=== PATIENT | female | born 1970 | race Caucasian/White ===

== ENCOUNTER 2023-08-22 19:34 | Emergency (ER) | payer BC, SELFPAY ==
[2023-08-22 20:00] LABS: % Basophils 0.7 % (0-2); % Eosinophils 1.7 % (0-6); % Immature Granulocytes 0.2 % (0-0.5); % Lymphocytes 36.1 % (20.5-51.1); % Monocytes 6.9 % (1.7-9.3); % Neutrophils 54.4 % (42.2-75.2); Absolute Eosinophils 0.1 10^3/uL (0-0.7); Absolute Lymphocytes 2.1 10^3/uL (1.2-3.4); Absolute Monocytes 0.4 10^3/uL (0.1-0.6); Absolute Neutrophils 3.2 10^3/uL (1.4-6.5); Hematocrit 40.4 % (37.0-47.0); Hemoglobin 14.6 g/dL (12.0-16.0); Mean Corp Hgb Conc. 36.1 g/dL (33.0-37.0); Mean Corpuscular Hgb 30.5 pg (27.0-31.0); Mean Corpuscular Volume 84.5 fL (81.0-99.0); Mean Platelet Volume 9.1 fL (7.4-10.4); Nucleated Red Blood Cells % 0 %; Platelet Count 302 10^3/uL (130-400); Red Blood Cell Count 4.78 10^6/uL (4.20-5.40); Red Cell Dist. Width 12.4 % (11.5-14.5); White Blood Cell Count 5.9 10^3/uL (4.8-10.8)
[2023-08-22 20:13] LABS: ALT (SGPT) 13 U/L (0-35); AST (SGOT) 22 U/L (14-36); Albumin 4.7 g/dl (3.5-5.0); Alkaline Phosphatase 68 U/L (38-126); Blood Urea Nitrogen 13 mg/dl (7-17); Calcium 10.1 mg/dl (8.4-10.2); Carbon Dioxide 28 mmol/L (22-30); Chloride 101 mmol/L (98-107); Glucose 91 mg/dl (70-99); Sodium 139 mmol/L (135-145); Total Bilirubin 0.6 mg/dl (0.2-1.3); Total Protein 7.3 g/dl (6.3-8.2); eGFR > 60.00
[2023-08-22 20:24] LABS: Troponin I < 0.012 ng/ml
[2023-08-22 21:32] LABS: Lipase 90 U/L (23-300)
[2023-08-22 22:11] LABS: TSH Reflex To Free T4 4.79 uIU/ml (0.47-4.68)
[2023-08-22 22:41] LABS: Free T4 1.06 ng/dl (0.78-2.19)
--- NOTE | 2023-08-22 23:40 | ED.GENMED ---
History of Present Illness
<Aurea Hoff NP - Last Filed: 08/24/23 18:45>
General
Chief Complaint: Chest Pain
Source: patient
Exam Limitations: none
Time Seen by Provider: 08/22/23 20:40
Nursing documentation reviewed up to this point in time: agreed with
Travel History
Have you had any contact with someone who has COVID-19?: No
Do you have any symptoms of coronavirus? Fever > 100 degrees, chills, cough, shortness of breath, sore throat, loss of taste or smell, muscle aches, or headache?: No
History of Present Illness
History of Present Illness:
Patient to ED with complaint of chest pain. Report sharp left anterior chest pain with tightening sensation to left shouder. Reported jaw tightness alos. She had a similar event 2 days ago. Took GasX with relief. Tonights symptoms started after
dinner. She denies n/v/diahporesis. Reports feeling lightheaded. Symptoms began to resolve on way to ED.
Past History
<Aurea Hoff NP - Last Filed: 08/24/23 18:45>
Past History
ED Past Medical History: None and Other (migraine)
ED Past Surgical History: None
Social History
Tobacco: Non-smoker
Alcohol: Occasional
Drug: None
Personal:
Living: with family
Review of Systems
<Aurea Hoff NP - Last Filed: 08/24/23 18:45>
Review of Systems
Allergies reviewed?: Yes
All Other Systems: ROS reviewed and negative except as documented in HPI and ROS
Constitutional: Reports no symptoms
EENT: Reports no symptoms
Respiratory: Reports no symptoms
Cardiac: Reports chest pain
ABD/GI: Reports no symptoms
: Reports no symptoms
Musculoskeletal: Reports no symptoms
Skin: Reports no symptoms
Neurological: Reports no symptoms
Psychiatric: Reports no symptoms
Phy Exam
<Aurea Hoff NATURALIZATION EXAMINER - Last Filed: 08/24/23 18:45>
General Physical Exam
General Presentation: well appearing and no apparent distress
General age: appears stated age
General Skin: warm and dry
General Habitus: normal
General Mental: alert
General Hydration: appears well hydrated
Cardiovascular Exam
Cardiovascular Exam: regular rate/rhythm and no edema
Pulmonary Exam
Pulmonary Exam: lungs clear and no respiratory distress
Musculoskeletal Exam
Musculoskeletal Exam: full ROM and neuro vasc intact
Skin Exam
Skin Exam: normal color, warm/dry and no rash
Psychiatric Exam
Psychiatric Exam: normal mood/affect
Scores
<Aurea Hoff NATURALIZATION EXAMINER - Last Filed: 08/24/23 18:45>
Heart Score for Chest Pain Patients
STEMI patient?: No
History: Moderately Suspicious
ECG: Normal
Age: >45 - <65 years
Risk Factors: No Risk Factors
Troponin: </= Normal Limit
Heart Score for Chest Pain Patients: 2
Heart Score Risk: 2.5% MACE over next 6 weeks
<Tomas Cardona DO - Last Filed: 08/23/23 02:05>
Heart Score for Chest Pain Patients
Heart Score for Chest Pain Patients: 2
Heart Score Risk: 2.5% MACE over next 6 weeks
Course
<Aurea Hoff NATURALIZATION EXAMINER - Last Filed: 08/24/23 18:45>
Orders/Labs/Results
Orders:
Orders
08/22/23 19:35
EKG [Electrocardiogram (*1)] Urgent
Reason for Study: Chest Pain
EKG- Treatment ONCE
08/22/23 19:55
Complete Blood Count/With Diff Urgent
Comprehensive Metabolic Panel Urgent
Free T4 Urgent
Lipase Urgent
Comment: ADD ON
TSH Reflex To Free T4 Urgent
Comment: ADD ON
Troponin I Urgent
08/22/23 20:55
Add On- LAB Urgent
Tests Added?: TSH reflex T4, lipase
08/22/23 20:56
Cardiac Monitoring- Treatment ONCE
08/22/23 23:26
D-Dimer Urgent
Troponin I Urgent
08/23/23 00:49
CT Chest Pe Study Urgent
Comment:
Reason For Exam: cp slightly high ddimer
Abnormal Lab Results
08/22/23 08/22/23
19:55 23:26
D-Dimer 0.57 H ug/mlFEU
(0.00-0.50)
TSH (Reflex) 4.79 H uIU/ml
(0.47-4.68)
08/22/23 19:55
08/22/23 19:55
<Tomas Cardona, DO - Last Filed: 08/23/23 02:05>
Orders/Labs/Results
Orders:
Orders
08/22/23 19:35
EKG [Electrocardiogram (*1)] Urgent
Reason for Study: Chest Pain
EKG- Treatment ONCE
08/22/23 19:55
Complete Blood Count/With Diff Urgent
Comprehensive Metabolic Panel Urgent
Free T4 Urgent
Lipase Urgent
Comment: ADD ON
TSH Reflex To Free T4 Urgent
Comment: ADD ON
Troponin I Urgent
08/22/23 20:55
Add On- LAB Urgent
Tests Added?: TSH reflex T4, lipase
08/22/23 20:56
Cardiac Monitoring- Treatment ONCE
08/22/23 23:26
D-Dimer Urgent
Troponin I Urgent
08/23/23 00:49
CT Chest Pe Study Urgent
Comment:
Reason For Exam: cp slightly high ddimer
Abnormal Lab Results
08/22/23 08/22/23
19:55 23:26
D-Dimer 0.57 H ug/mlFEU
(0.00-0.50)
TSH (Reflex) 4.79 H uIU/ml
(0.47-4.68)
08/22/23 19:55
08/22/23 19:55
<Aurea Hoff NP - Last Filed: 08/24/23 18:45>
*Critical Care Note
Total Time (30-74mins, 75-104mins- exclusive of procedures): Not Applicable
<Aurea Hoff NP - Last Filed: 08/24/23 18:45>
Update Note
Update Note:
Patient resting comfortable. First troponin neg. 2nd trop pending. No further symtpms while in dept.
ED Attending Note
<Aurea Hoff NATURALIZATION EXAMINER - Last Filed: 08/24/23 18:45>
-
Portions of this chart may have been created with voice recognition software.� Occasional wrong word or��sound alike� substitutions may have occurred due to the inherent limitations of voice recognition software.
<Tomas Cardona DO - Last Filed: 08/23/23 02:05>
ED Attending Note
Patient seen and examined by attending physician: Yes
I performed the substantive portion of visit, reviewed & personally made and approve the management plan that is documented in note by myself or KRYS.: Yes
I performed a history and physical exam of patient and discussed management with resident, I reviewed resident's note and agree with documented findings and plan of care.: Yes
ED Attending Note:
I evaluated the patient at bedside. The patient appears very comfortable at time of discharge. She is to follow-up with cardiology. 2 troponins as well as CTA showed no clear cause for her symptoms. Encouraged to return if worse.
Discharge Plan
Departure
Patient Disposition: Home (Routine Discharge)
Date of Disposition: 08/23/23
Time of Disposition: 02:02
Patient with high blood pressure during this ER visit?: No
Condition: Good
Covid-19: Not Applicable
Discharge Problem:
Chest pain
Instructions: Chest Pain CBC Follow Up
Prescriptions:
No Action
acetaminophen [Tylenol Extra Strength] 500 MG tablet
500 mg PO BIDPRN PRN (Reason: mild pain)
ibuprofen 200 MG tablet
400 mg PO BIDPRN PRN (Reason: mild pain)
multivitamin with folic acid [Tab-A-Lazara] 1 TABLET tablet
1 tab PO DAILY
Referrals:
Petr Sinclair MD [Active] - Follow up in 2-3 days
Raquel Whitley DO [Family Provider] -
Activity Restrictions/Additional Instructions:
Return to the emergency department immediately for any changes in/worsening of your symptoms. The cause of your symptoms is unclear�somebody from [facility] cardiology should be calling you for follow-up. Although the CAT scan shows no sign of
blood clot in your lung, incidentally, a 4 mm nodule was seen at the base of the right lung�follow with your primary care doctor.
Interventions
Interventions:
*Risk Screen - Suicide Last Done: 08/22/23 19:36
*General Assessment Last Done: 08/22/23 19:36
*Neglect/Abuse Screening Last Done: 08/22/23 19:36
ED- Fall Risk Assessment Last Done: 08/23/23 02:09
*ED COVID-19 Vaccine History Last Done: 08/22/23 19:36
*Nursing Disposition Last Done: 08/23/23 02:09
ED- Cardiac Assessment Last Done: 08/23/23 02:09
Discharge Date and Time
Discharge Date/Time: 08/23/23 02:10
Print Language: ESTONIAN
[2023-08-22 23:46] LABS: D-Dimer 0.57 ug/mlFEU (0.00-0.50)
[2023-08-22 23:57] LABS: Troponin I < 0.012 ng/ml
--- NOTE | 2023-09-02 12:12 | OID.L.PAT ---
Pulmonary Nodule Pat Letter
- -
09/02/23
KRISTIN GEORGE
[address]
[place], [place] [address]
Dear KRISTIN,
A pulmonary nodule was seen on an imaging study done by [facility]. This was reviewed by the [facility] Pulmonary Nodule Advisory Board and the following recommendation was made:
Recommendation: CT of the Chest in 6 months
If you have any questions, please do not hesitate to contact your primary care physician. If you are in need of a Physician, you can go to [email or web address] and click on 'Find a Provider'. Type 'Family Medicine' in the search.
Oncology Nurse Navigator
[facility]
[phone]
--- NOTE | 2023-09-02 12:13 | OID.L.REC ---
Pulmonary Nodule Follow Up
- Recommendation
09/02/23
Pulmonary Nodule Review Recommendations
Your patient, KRISTIN GEORGE, had a pulmonary nodule seen on an imaging study done 08/23/2023 in the [facility] Emergency Room.
This was reviewed by the [facility] Pulmonary Nodule Advisory Board and the following recommendation was made:
Recommendation: CT of the Chest in 6 months
If you have any questions please don't hesitate to contact us.
Sincerely,
Oncology Nurse Navigator
[facility]
[phone]
== END 2023-08-23 02:10 | disposition home or self-care (01) ==
LOC: EMR 19:34
PROVIDERS: Nurse Practitioner; EMERGENCY PHYSICIAN Emergency Medicine; FAMILY PHYSICIAN Family Medicine
DX: R07.89 Other chest pain (principal)
CPT/HCPCS: 99285; 71275; 80053; 83690; 84439; 84443; 84484; 85025; 85379; 93005; Q9967